=== PATIENT | female | born 1950 ===

== ENCOUNTER → 2016-05-17 | Day surgery (SDC) | payer MEDICARE ==
[2016-05-17] VITALS (11 sets, daily range): BP systolic 148–179; BP diastolic 69–93; PULSE 67–106; RESP 13–18; O2SAT 93–100
[~2016-05-17] VITALS: Ht 162.6 cm; Wt 99.2 kg
[~2016-05-17] MED LIST: ACET325C PO; ALBU8.5H2 INHALATION; AZEL205.2 NS; Atropine 0.4 mg/mL Inj IVPUSH PRN; Belladonna Alk-Opium 60 mg Rectal Suppository RECTAL ONE; CeFAZolin Inj 2 GM in IV Premix 1 EACH IV ONE; CeFAZolin Inj 2 gm / 50mL D5W IV ONE; DICL100G8 TOPICAL; Dexamethasone 4 mg/mL Inj ONE; EPHEDrine Sulfate 50 mg/mL Inj IVPUSH PRN; EPHEDrine/NS 5 mg/mL 5 mL Syringe ONE; FLUT12AE4 IH; GABA300C PO; HYDROcodone-APAP 5-325 mg Tablet PO PRN; HYDROmorphone 1 mg/mL Inj IVPUSH PRN; Labetalol 5 mg/mL 4 mL Inj IV PRN; Lactated Ringer's 1,000 ML IV SCH; Lactated Ringer's 500 ML IV PRN; MetoCLOpramide 5 mg/mL 2 mL Inj IVPUSH PRN; OMEP20CA11 PO; Ondansetron 2 mg/mL 2 mL Inj IVPUSH PRN; Ondansetron 2 mg/mL 2 mL Inj ONE; Ondansetron 8 mg ODT Tablet PO PRN; Phenazopyridine 97.5 mg Tablet PO PRN; Phenylephrine 10,000 mCg/mL Inj IVPUSH PRN; Propofol 10,000 mCg/mL 20 mL Inj ONE; RIZA10TA23 PO; TRAM50TA2 PO; fentaNYL-PF 50 mCg/mL 2 mL Inj IVPUSH PRN; fentaNYL-PF 50 mCg/mL 2 mL Inj ONE; hydrALAZINE 20 mg/mL Inj IVPUSH PRN
[2016-05-17] MEDS: Lactated Ringer's 1,000 ML IV SCH ×2 (12:58→13:36)
--- NOTE | 2016-05-17 13:34 | PCM.HPANE ---
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) Medications Hypertension Medication: No Home Meds Incl Beta Pepito: No Reported Medications Diclofenac Gel (Voltaren Gel)100 Gm Tube1 Applic TOPICAL PRN #1 TUBE 05/17/16 Rizatriptan ODT (Maxalt [employer]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)10 Mg Wodesj18 Mg PO PRN #9 05/17/16 Gabapentin (Neurontin)300 Mg Capsule1,200 Mg PO HS 30 Days Ref 0 05/16/16 Albuterol HFA (Proair HFA)8.5 Gm Hfa.aer.ad2 Puffs INHALATION Q4H #1 INHALER 05/16/16 Tramadol 50 Mg Msmdsm29 Mg PO Q4H PRN For Pain Ref 0 05/16/16 Omeprazole 20 Mg Capsule.dr20 Mg PO DAILY Ref 0 05/16/16 Azelastine HCl 205.5 Mcg/0.137 Ml Niwot.jfqg972.5 Mcg NS DAILY 05/16/16 Fluticasone/Salmeterol (Advair Hfa 115-21 Mcg Inhaler)12 Gm Hfa.aer.ad1 Puff IH BID #1 INHALER Ref 0 05/16/16 Acetaminophen 325 Mg [id number] Mg PO BID 05/16/16 Discontinued Reported Medications Phenazopyridine 100 Mg Najcwn825 Mg PO TID PRN For Pain Ref 0 05/16/16 Ciprofloxacin (Cipro)500 Mg Efhhbe780 Mg PO BID Ref 0 05/16/16 History History of ENT Problems?: No Hx of Heart Problems?: Yes (high cholersterol, no CAD) Hx of Respiratory Problem?: Yes Respiratory History: Positive for:: Asthma (INHALER USE; mild) Pneumonia Use of Inhalers / NEBS Hx Neurologic Problems?: Yes Neurological History: Positive for:: Headaches Hx of GI Problems?: Yes Gastrointestinal History: Positive for:: Gastroesphageal Reflux (rare dyspepsia on PPI) Heartburn Hx of Problems?: Yes Genitourinary History: Positive for:: Kidney Stones Urinary Tract Infection Other Pertinent History: HEMATURIA Skin History: Denies:: History Skin Disorders? 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) Hx Alcohol Use: NoHx Substance Use: No Smoking Status: Former Smoker Have You Smoked inLast 12 mo: No Stop/Bang S-Snoring: Do You Snore Loudly: Yes T-Tired: feel tired, fatigued: Yes O-Obsered: Observed not breath: No P-Blood Pressure: treated: No B- Body Mass Index > 35 kg/m2: Yes A- Age over 50: Yes N- Neck Large Circumference: No G- Gender Male: No CHANCE Total Score: 4 CHANCE Risk Assessment: High Risk, =/>3 Yes CHANCE Category 2: Yes Risk Assessment Category Category 1A: Patient has history of documented sleep apnea, and HAS NOT received any narcotic, sedative or anesthesia administration during this stay. Category 1B: Patient has history of documented sleep apnea, and HAS received any narcotic , sedative or anesthesia administration during this stay Category 2: Patient has SUSPECTED Obstructive Sleep Apnea, and HAS received any narcotic , sedative or anesthesia administration during this stay. Category 3: Patient has SUSPECTED Obstructive Sleep Apnea and HAS NOT received narcotic, sedative or anesthesia administration during this stay. Category 4: Outpatient in Procedural Areas with known sleep apnea or who screen positive for High Risk via the STOP/BANG questionnaire. Exam Exam General Appearance: Alert, Oriented X3, Cooperative, No Acute Distress HEENT/AIRWAY: MP 3 Lungs: Clear to Auscultation, Normal Air Movement Heart: Exam Unremarkable, Regular Rate/Rhythm, No Murmurs/Rubs/Gallops Plan Impression Patient chart reviewed, patient interviewed and anesthestic plan with risks, benefits, and alternatives discussed, and informed consent obtained. ASA Physical Status: ASA2 Mod Systemic Disease Anesthetic Plan: GA Bene/Risks/Altern/Consents: Yes HP Complete Prior to Induction: Yes Nick Dai MD May 17, 2016 12:52
--- NOTE | 2016-05-17 14:29 | PCM.ANEP1 ---
Post Anesthesia Phase 1 PACU Phase 1 Assessment Vital Signs Vital Signs Date Time Temp Pulse Resp B/P Pulse Ox O2 Delivery O2 Flow Rate FiO2 05/17/16 14:25 102 16 171/83 97 Room Air 05/17/16 14:19 36.9 106 18 152/88 100 Simple Mask 8 05/17/16 13:01 35.9 72 18 148/88 94 Room Air Anesthetic Administered: GA Level of Alertness: Awake, talking ANAYA's with Equal Strength: Yes Pain: No Nausea or Vomiting: No Oxygen Delivery: Simple Mask Lungs: Clear to Auscultation, Normal Air Movement Nick Dai MD May 17, 2016 14:28
--- NOTE | 2016-05-17 14:29 | PCM.ANEP2 ---
Post Anesthesia Evaluation ASA/CMS Post Anesthesia VS in Patient's Normal Range?: Yes Resp Stable; Airway Patent?: Yes CV Function & Hydration Stable: Yes Mental Status Recovered?: Yes Pain control Satisfactory?: Yes N/V Control Satisfactory?: Yes Nick Dai MD May 17, 2016 14:29
--- NOTE | 2016-05-18 10:15 | OP ---
[address] [address] OPERATIVE REPORT PATIENT: FILIPE SHI : 1950 MR#: [id number] ADMIT: 05/17/2016 JOB ID: [id number] DATE OF SURGERY: 05/17/2016 PROCEDURE: Transurethral resection of bladder tumor 2-3 cm in size, two tumors. PREOPERATIVE DIAGNOSIS(ES): Transurethral resection of bladder tumor 2-3 cm in size, two tumors. POSTOPERATIVE DIAGNOSIS(ES): Transurethral resection of bladder tumor 2-3 cm in size, two tumors. SURGEON: Tara Pulido MD. ANESTHESIA: General. INDICATIONS: The patient is a 65-year-old woman with a history of gross hematuria. At workup found to have a filling defect on a CT urogram and also at least two small left-sided papillary tumors with tiny small dystrophic calcifications along the left bladder wall overlying the obturator fossa from just cephalad and lateral to the left ureteral orifice and on anterior along the wall. She was counseled about treatment options and strongly recommended to undergo resection for pathology and what was felt to be likely a superficial bladder cancer. PROCEDURE IN DETAIL: After appropriate informed consent was obtained, the patient was brought to the operating room. She received IV antibiotics prior to onset of the procedure. SCDs were placed. Adequate general anesthesia induced. She was carefully placed in the dorsal lithotomy position. All pressure points carefully padded. Cleaned, prepped, and draped in the usual sterile fashion. Rigid scope was introduced into the bladder, was surveyed systematically with both 30 and 70-degree lenses. We noted no other lesions other than the complex along the left side previously described. The area closer to the ureteral orifice we were able to resect with the resectoscope getting a nice bite into the underlying muscle in several swipes. These pieces were irrigated out. Electrocautery over the more anterior portion of this left-sided lesion was eliciting a strong obturator response. Thus we elected to go ahead and use the cold cup for this area. Several biopsies in this area were able to largely denude the tumor, and then we used electrocautery to cauterize the base and the edges and ablate any small remaining tumor. Hemostasis was excellent of both areas which were nearly contiguous. Greatest diameter approximately 2 cm treated. The pieces were handed off for permanent pathology. Hemostasis was excellent. Bladder was irrigated out. The patient was given a B and O suppository for postop comfort. Bladder was drained. She was awakened, taken in stable condition to the postanesthesia care unit.
--- NOTE | 2016-05-19 15:03 | PATH ---
SURGICAL PATHOLOGY Attending Physician:Tara Pulido MD CASE STATUS: Signed Out PATIENT NAME: FILIPE SHI PID: [id number] : 1950 DATE COLLECTED:05/17/2016 00:00 SPECIMEN: Bladder, Biopsy CLINICAL HISTORY: BLADDER TUMOR 1). BLADDER TUMOR FINAL DIAGNOSIS: 1.BLADDER TUMOR: HIGH-GRADE PAPILLARY UROTHELIAL CARCINOMA. NO LAMINA PROPRIA INVASION. MUSCULARIS PROPRIA IS PRESENT AND IS NEGATIVE FOR INVASION. ICD10 C67.9 NOTE: As part of a routine software quality assurance specialist, Dr. Sinai Johnson and Dr. Papi Walters have also reviewed this case and agree with the diagnosis. GROSS DESCRIPTION: The specimen is received in one formalin filled container labeled with the patient's name, sublabeled "bladder tumor" and consists of multiple portions of tissue which aggregate to 0.7 x 0.6 x 0.4 CM. The specimen is filtered and entirely submitted in one cassette. 05/18/2016 [facility] MICRO DESCRIPTION: See diagnosis. ICD-9 CODES: CPT CODES: 1: 18784 Electronically Signed Out Stephanie Cook MD [facility] Pathology [facility] [address], [place] [address] Technical component performed at [facility], [address] [place] [address] Ave[address], [place], [address]
== END | disposition home or self-care (01) ==
LOC: SAS 11:54
PROVIDERS: ATTEND Urology
DX: C67.9 Malignant neoplasm of bladder, unspecified (principal); E78.5 Hyperlipidemia, unspecified; G43.909 Migraine, unspecified, not intractable, without status migrainosus; J45.909 Unspecified asthma, uncomplicated; K21.9 Gastro-esophageal reflux disease without esophagitis; M19.90 Unspecified osteoarthritis, unspecified site; E66.9 Obesity, unspecified; Z68.37 Body mass index [BMI] 37.0-37.9, adult; R73.01 Impaired fasting glucose; Z87.440 Personal history of urinary (tract) infections; Z87.442 Personal history of urinary calculi; Z87.891 Personal history of nicotine dependence; Z79.51 Long term (current) use of inhaled steroids
CPT/HCPCS: 52235; J0690; J1100; J2405; J2765; J3010; J7120